=== PATIENT | female | born 1940 | race Caucasian/White ===

== ENCOUNTER → 2018-09-02 | Outpatient (CLI) | payer MEDICARE | END | disposition home or self-care (01) | LOC: PCVCCLINIC 10:00 | PROVIDERS: ATTEND Internal Medicine | DX: R07.2 Precordial pain (principal); R06.09 Other forms of dyspnea; E78.5 Hyperlipidemia, unspecified; I27.82 Chronic pulmonary embolism; C90.00 Multiple myeloma not having achieved remission; Z79.01 Long term (current) use of anticoagulants; Z88.5 Allergy status to narcotic agent | CPT/HCPCS: 36415; 80061; 93005; G0463 ==

== ENCOUNTER → 2018-10-06 | Outpatient (CLI) | payer MEDICARE ==
[~2018-10-06] MED LIST: REGADENOSON 0.4 MG/5 ML DISP.SYRIN. IV ONE
--- NOTE | 2018-10-06 09:35 | PCVCIMAG ---
APPROVED REPORT Study performed: 10/06/2018 08:52:55 EXAM: Comprehensive 2D, Doppler, and color-flow Echocardiogram Patient Location: Echo lab Status: routine BSA: 1.46 HR: 49 bpmBP: 110/62 mmHg Rhythm: Bradycardia Other Information Study Quality: Adequate Indications Dyspnea Chest Pain hx pulmonary embolism 2D Dimensions IVSd: 11.59 (7-11mm) LVDd: 39.42 mm PWd: 10.92 (7-11mm)Ascending Ao: 35.79 (22-36mm) LVDs: 25.45 (25-40mm) Left Atrium: 32.65 (27-40mm) Aortic Root: 32.78 mm LV Single Plane 4CH: 57.93 % LV Single Plane 2CH: 64.49 % Biplane EF: 62.3 % Volumes Left Atrial Volume (Systole) Single Plane 4CH: 61.41 mLSingle Plane 2CH: 52.30 mL LA ESV Index: 39.00 mL/m2 Aortic Valve AoV Peak Taiwo.: 1.34 m/s AO Peak Gr.: 7.18 mmHgLVOT Max P.98 mmHg LVOT Max V: 0.86 m/s Mitral Valve E/A Ratio: 1.4 MV Decel. Time: 255.07 ms MV E Max Taiwo.: 0.61 m/s MV A Taiwo.: 0.43 m/s IVRT: 117.65 ms Pulmonary Valve PV Peak Taiwo.: 0.92 m/sPV Peak Gr.: 3.37 mmHg Pulmonary Vein P Vein S: 0.32 m/sP Vein A: 0.27 m/s P Vein D: 0.46 m/sP Vein A Dur.: 128.0 msec P Vein S/D Ratio: 0.70 Tricuspid Valve TR Peak Taiwo.: 2.60 m/s TR Peak Gr.: 27.02 mmHg TV Vmax: 0.57 m/s Left Ventricle The left ventricle is normal size. There is normal LV segmental wall motion. There is normal left ventricular wall thickness. Left ventricular systolic function is normal. The left ventricular ejection fraction is within the normal range. LVEF is 55%. The left ventricular diastolic function is normal. Right Ventricle The right ventricle is normal size. The right ventricular systolic function is normal. Atria Left atrium is mildly dilated. Right atrium is mildly dilated. Aortic Valve Mild aortic valve sclerosis. No aortic regurgitation is present. There is no aortic valvular stenosis. Mitral Valve The mitral valve is normal in structure. Trace to mild mitral regurgitation. No evidence of mitral valve stenosis. Tricuspid Valve The tricuspid valve is normal in structure. Mild tricuspid regurgitation with PAP of 30 mmHg. Pulmonic Valve The pulmonary valve is normal in structure. There is no pulmonic valvular regurgitation. Great Vessels The aortic root is normal in size. IVC is normal in size and collapses >50% with inspiration. Pericardium There is no pericardial effusion. There is no pleural effusion. <Conclusion> Left ventricular systolic function is normal. There is normal LV segmental wall motion. LVEF is 55%. Mild aortic valve sclerosis. No aortic regurgitation or stenosis The mitral valve is normal in structure. Trace to mild mitral regurgitation. Mild tricuspid regurgitation with pulmonary artery pressure of 30 mmHg. There is no pericardial effusion.
--- NOTE | 2018-10-06 15:49 | PCVCIMAG ---
APPROVED REPORT Imaging Protocol: Rest Tc-99m/Stress Tc-99m 1 day Study performed: 10/06/2018 10:21:27 Indication: Chest tightness, Dyspnea Patient Location: Out-Patient Stress Nurse: Merly Kaba RN, Merly Kaba RN SD Tech:Neelima Fulton [facility] Ht: 4 ft 10 in Wt: 119 lbs BSA: 1.46 m2 HR: 45 bpm BP: 100/58 mmHg BMI: 24.8 Rhythm: Sinus Bradycardia, Inferior T wave abnormality Medical History Medications: [place], KCL, Warfarin Allergies: Morphine Cardiac Risk Factors: Age Pretest Chest Pain Characteristics: No chest pain Exercise History: Physically active Physical Disabilities: Weakness Resting Data Rest SPECT myocardial perfusion imaging was performed in supine position 45 minutes following the intravenous injection of 10.6 mCi of Tc-99m Sestamibi. Time of rest injection: 0930 Date: 10/06/2018 Administration Route: IV Administration Site: Right Arm Pharmacologic Stress Pharmacologic stress test was performed by injecting Regadenoson 0.4 mg IV push over 10-15 seconds immediately followed by the intravenous injection of 32.9 mCi of Tc-99m Sestamibi. Time of stress injection: 1100 Date: 10/06/2018 Administration Route: IV Administration Site: Right Arm Gated Stress SPECT was performed 45 minutes after stress injection. The images were gated to evaluate regional wall motion and calculate left ventricular ejection fraction. Stress Test Details Stress Test: Pharmacologic stress testing performed using 0.4 mg of regadenoson per 5 mL given IV over 10 seconds. Reason for pharmacologic stress test: physical limitation, general weakness. HRMax Heart Rate (APMHR): 144 bpm Resting HR: 45 bpmTarget HR (85% APMHR): 122 bpm Max HR Achieved: 85 bpm % of APMHR: 59 Recovery HR: 71 bpm BP Resting BP: 100/58 mmHg Max BP: 122/56 mmHg Recovery BP: 109/58 mmHg ECG Resting ECG: Sinus Bradycardia, nonspecific ST and T wave abnormality Stress ECG: Sinus Rhythm, nonspecific ST and T wave abnormality ST Change: None Maximum ST Deviation: 0 mm Arrhythmia: PVC's Recovery ECG: Sinus Rhythm, nonspecific ST and T wave abnormality Recovery ST Change: None Recovery ST Deviation: 0 mm Recovery Arrhythmia: None Clinical Reason for Termination: Completed protocol Stress Symptoms: Abdominal discomfort Symptoms resolved with caffeine. Stress ECG Conclusion ECG: Non-ischemic Clinical: Non-ischemic Study Quality Study: Good Study Data Post stress, the left ventricular ejection was 62%.. SSS: 7 SRS: 13 SDS: 0 TID = 1.03. Perfusion No evidence of stress induced ischemia or prior myocardial infarction. Wall Motion Normal left ventricular size and function with no regional wall motion abnormalities. Nuclear Conclusion No evidence of stress induced ischemia or prior myocardial infarction. Normal left ventricular size and function with no regional wall motion abnormalities. Post stress, the left ventricular ejection was 62%. No prior study available for comparison. Interpreted by: Gary Delgado MD Electronically Approved: 10/06/2018 14:06:53 <Conclusion> ECG: Non-ischemic Clinical: Non-ischemic
== END | disposition home or self-care (01) ==
LOC: PCVCIMAG 08:26
PROVIDERS: ATTEND Internal Medicine
DX: I08.3 Combined rheumatic disorders of mitral, aortic and tricuspid valves (principal); R07.9 Chest pain, unspecified; R06.09 Other forms of dyspnea; R07.2 Precordial pain
CPT/HCPCS: 78452; 93017; 93306; A9500; J2785